=== PATIENT | male | born 2000 | race Caucasian/White ===

== ENCOUNTER 2021-03-17 01:47 | Emergency (ER) | payer OTHER ==
[2021-03-17 03:58] LABS: BASOPHIL 0.4 % (0-2); EOSINOPHIL 0 % (0-5); HCT 45.7 % (42.0-52.0); HGB 16.4 g/dl (13.2-18.0); LYMPHOCYTE 24.3 % (15-48); MCH 29.4 pg (25.0-31.0); MCHC 35.9 g/dL (32.0-36.0); MCV 81.9 fL (78.0-100.0); MONOCYTE 7.7 % (0-12); MPV 10.1 fL (6.0-9.5); NEUTROPHIL 67.2 % (41-80); NRBC 0; PLT 237 K/uL (150-400); RBC 5.58 M/uL (4.70-6.00); RDW 11.6 % (11.5-14.0); WBC 12.4 K/uL (4.0-10.5)
[2021-03-17 04:09] LABS: BUN/CREAT RATIO (CALC) 19.3 RATIO; CREATININE 0.88 mg/dL (0.67-1.17); POTASSIUM 3.5 mmol/L (3.5-5.1)
[2021-03-17 07:30] LABS: AMPHETAMINES NEGATIVE (NEGATIVE); BARBITURATES NEGATIVE (NEGATIVE); ECSTASY (MDMA) NEGATIVE (NEGATIVE); MARIJUANA (THC) NEGATIVE (NEGATIVE); METHADONE NEGATIVE (NEGATIVE); OPIATES NEGATIVE (NEGATIVE); OXYCODONE NEGATIVE (NEGATIVE)
== END 2021-03-17 08:03 | disposition home or self-care (01) ==
LOC: FER 01:47
PROVIDERS: Internal Medicine
DX: F10.129 Alcohol abuse with intoxication, unspecified (principal); F17.290 Nicotine dependence, other tobacco product, uncomplicated; Z91.018 Allergy to other foods; Y90.7 Blood alcohol level of 200-239 mg/100 ml
CPT/HCPCS: 36415; 80048; 80305; 85025; 99284; G0480; J7120